=== PATIENT | female | born 1950 | race Caucasian/White ===

== ENCOUNTER → 2021-05-09 | Outpatient (CLI) | payer OTHER ==
[~2021-05-09] MED LIST: AMLODIPINE BESY10 MG PO; ATORVASTATIN CA20 MG PO; BENTYL 20MG TAB20 MG PO; CEFPODOXIME PR200 MG PO; GLUCOPHAGE XR500 M1 PO; IBUPROFEN800 MG PO; JANUVIA100 MG PO; KEFLEX500 MG PO; LABETALOL HCL200 MG PO; LOSARTAN-HCTZ1 EACH PO; PERCOCET 10-321 EACH PO; PREDNISONE20 MG PO; VITAMIN C 500500 MG PO; VITAMIN D5000 UNIT PO; ZOFRAN4 MG PO
== END ==
LOC: MAMO 07:26
DX: Z12.31 Encounter for screening mammogram for malignant neoplasm of breast (principal)
CPT/HCPCS: 77063; 77067

== ENCOUNTER 2021-12-14 12:14 | Emergency (ER) | payer OTHER ==
[~2021-12-14] VITALS: Ht 154.9 cm; Wt 68.0 kg
[2021-12-14 13:42] LABS: HEMOGLOBIN 12.6 gm/dl (12.3-15.3); RED BLOOD COUNT 4.23 M/UL (4.00-5.10); WHITE BLOOD COUNT 8.8 K/UL (4.5-11.0)
[2021-12-14 14:04] LABS: BUN/CREATININE RATIO 30 (0-10)
[2021-12-14] MEDS ORDERED: PHENERGAN 12.12.5 M1 PO (15:49)
[2021-12-14] MEDS ORDERED: DECADRON6 MG PO (15:49)
[2021-12-14] MEDS ORDERED: ZITHROMAX250 MG PO (15:49)
== END 2021-12-14 17:33 | disposition home or self-care (01) ==
LOC: ER1 12:14
PROVIDERS: Physician Assistant
DX: U07.1 COVID-19 (principal); J12.82 Pneumonia due to coronavirus disease 2019; E11.9 Type 2 diabetes mellitus without complications; I10 Essential (primary) hypertension; Z90.710 Acquired absence of both cervix and uterus
CPT/HCPCS: 0240U; 71045; 80053; 82962; 85025; 99284; M0222